=== PATIENT | male | born 1940 | race Caucasian/White ===

== ENCOUNTER 2019-10-06 09:16 | Inpatient (IN) ==
--- NOTE | 2019-10-06 10:34 | Diag Imaging Result Doc PS360 ---
EXAM: CT HEAD W/O CONTRAST INDICATION: R sided weakness TECHNIQUE: This exam was performed using automated exposure control, adjustment of mA or kV according to patient size, and/or use of iterative reconstruction technique. COMPARISON: None. FINDINGS: There is focal encephalomalacia at the anterior tip of the left temporal lobe and a small focus of encephalomalacia at the anterior left frontal lobe. There are a couple of chronic appearing pontine lacunar infarcts. There is low-attenuation in the periventricular and subcortical white matter suggesting at least moderate microangiopathy. There is no definite acute infarct given the limited sensitivity of CT versus MRI. There is no discrete intracranial mass, mass effect, or intracranial hemorrhage. The surrounding soft tissues and bony structures are essentially unremarkable. IMPRESSION: Chronic appearing changes as described. No definite acute intracranial pathology by CT. Electronically signed by Dennys Campbell 10/06/2019 10:32 AM
[2019-10-06 10:50] LABS: BASO# 0.04 X1000 (0.0-0.2); BASO% 0.6 % (0.0-0.8); EOS# 0.25 X1000 (0.0-0.7); EOS% 3.9 % (0.0-10.0); HEMATOCRIT 35.7 % (42.0-52.0); IMM GRAN# 0.01 X1000 (0.0-0.04); IMM GRAN% 0.2 % (0.0-0.5); LYMPH# 1.03 X1000 (1.2-3.4); LYMPH% 16.2 % (20.5-51.1); MCH 26.8 PG (27-31); MCHC 30.8 g/dL (33-37); MCV 86.9 FL (81-99); MONO# 1.04 X1000 (0.11-0.59); MONO% 16.4 % (1.7-9.3); MPV 11.5 FL (7.4-10.4); NEUT# 3.98 X1000 (1.4-6.5); NEUT% 62.7 % (42.2-75.2); PLT 234 X1000 (130-400); RBC 4.11 XMIL (4.7-6.1); RDW 16.5 % (11.5-14.5); WBC 6.35 X1000 (4.8-10.8)
[2019-10-06 11:04] LABS: ALBUMIN 4.3 g/dL (3.5-5.0); CALCIUM 8.7 mg/dL (8.8-10.2); CREATININE 1.5 mg/dL (0.7-1.2); POTASSIUM 5.1 mmol/L (3.5-5.1); TOTAL BILIRUBIN 0.6 mg/dL (0.20-1.00); TOTAL PROTEIN 7.2 g/dL (6.3-8.3)
[2019-10-06 11:08] LABS: PTT 26.3 Seconds (22.3-41.8)
[2019-10-06 11:11] LABS: INR 1.04; PROTIME 14.1 Seconds (11.0-16.0)
--- NOTE | 2019-10-06 12:23 | Diag Imaging Result Doc PS360 ---
EXAM: MRI BRAIN W/O CONTRAST INDICATION: R sided weakness COMPARISON: CT head performed earlier today. No prior MRI is available for comparison. FINDINGS: There is a small round focus of restricted diffusion seen in the hall radiata of the left parietal lobe consistent with an acute lacunar infarct. This is not visible on the previous CT. There is corresponding T2/FLAIR hyperintensity. There is also extensive patchy T2/FLAIR hyperintensity in the periventricular and subcortical white matter indicating advanced microangiopathy. There is focal encephalomalacia at the anterior left temporal lobe and the anterior left frontal lobe. There is a small periventricular chronic lacunar infarct adjacent to the anterior horn of the left lateral ventricle. There are a couple of small chronic pontine lacunar infarcts. There is no discrete intracranial mass, mass effect, or intracranial hemorrhage. There is mild sphenoid sinus mucosal disease. Surrounding soft tissues and bony structures are essentially unremarkable, otherwise. IMPRESSION: 1.Acute lacunar infarct in the hall radiata of the left parietal lobe as described. 2.Advanced white matter microangiopathy, left temporal and left frontal encephalomalacia, and several chronic lacunar infarcts as detailed above. Electronically signed by Dennys Campbell 10/06/2019 12:21 PM
[2019-10-06] MEDS ORDERED: TYLENOL PO PRN ×2 (13:44→16:36)
[2019-10-06] MEDS ORDERED: ZOFRAN IV PRN ×2 (13:44→16:36)
[2019-10-06] MEDS ORDERED: APRESOLINE IV PRN (13:47)
[2019-10-06] MEDS ORDERED: NORVASC PO SCH (14:00)
--- NOTE | 2019-10-06 16:46 | Vascular Study Report ---
EXAM: Carotid Ultrasound INDICATION: acute CVA TECHNIQUE: COMPARISON: None. FINDINGS: Right: There is mild soft and smooth atherosclerotic plaque and intimal thickening at the carotid bulb. The peak systolic velocity measures 68, 77, 46, 43, 43, 52, and 66 cm/s at the right subclavian artery, CCA, bifurcation, proximal ICA, mid ICA, distal ICA, and ECA, respectively. There is antegrade flow in the vertebral artery. The carotid ratio is 0.68. Left: There is no significant atherosclerotic disease involving the left carotid system on grayscale images. The peak systolic velocity measures 57, 71, 47, 29, 53, 57, and 39 cm/s at the left subclavian artery, CCA, bifurcation, proximal ICA, mid ICA, distal ICA, and ECA, respectively. There is antegrade flow in the vertebral artery. The carotid ratio is 0.79. IMPRESSION: Mild atherosclerotic plaque at the right carotid bulb as described. No evidence of hemodynamically significant stenosis. Electronically signed by Dennys Campbell 10/06/2019 4:44 PM
--- NOTE | 2019-10-06 16:57 | EKG Report ---
Test Performed on : 10/06/2019 10:41:00 AM Test Reason : weakness Blood Pressure : / mmHG Vent. Rate : 070 BPM Atrial Rate : 070 BPM P-R Int : 180 ms QRS Dur : 104 ms QT Int : 414 ms P-R-T Axes : 039 005 091 degrees QTc Int : 447 ms Normal sinus rhythm. Abnormal QRS-T angle, consider primary T wave abnormality Abnormal ECG No previous ECGs available Unconfirmed Result
[2019-10-06] MEDS: NS 1,000 ML IV SCH (18:44)
[2019-10-06] MEDS: ASPIRIN PO SCH (18:44)
--- NOTE | 2019-10-06 19:19 | HISTORY AND PHYSICAL ---
CHIEF COMPLAINT: Trouble with right leg. HISTORY OF PRESENT ILLNESS: This is a 78-year-old gentleman who presented to the emergency room complaining of right sided weakness and trouble with ambulation that began Wednesday. The said that initially when this started, he went to check the mail and was dragging his right leg. Later that day, while he was eating, he started leaning to the right. This had since improved somewhat. She denied any difficulty speaking or any facial droop. He had no difficulty chewing and swallowing. Over the last 3 days, the patient has had difficulty walking. He has fallen a few times. Mr Barakat reports he has not seen a doctor in 13 years. PAST MEDICAL HISTORY: Denies. PAST SURGICAL HISTORY: Denies. SOCIAL HISTORY: He is . He lives this . He denies any alcohol, tobacco, or illicit drug use. ALLERGIES: No known drug allergies. HOME MEDICATIONS: None. FAMILY HISTORY: Positive for hypertension. He denies any family history of strokes. REVIEW OF SYSTEMS: Discussed with patient with pertinent positives stated in the HPI. He denied any syncope or dizziness, any chest pain or palpitations, shortness of breath, cough, fever, chills, night sweats, any nausea, vomiting, diarrhea, constipation, black or bloody vomitus or stools, any hematuria, dysuria, frequency, urgency. PHYSICAL EXAMINATION: GENERAL: This is a 78-year-old gentleman who is sitting on the stretcher in the emergency room in no distress. VITAL SIGNS: Blood pressure is 175/100, respirations are 18, temperature is 98.3 degrees, heart rate is 72. O2 saturations are 98% on room air. EYES: Pupils are equal, round, react to light. EOMs are intact. Sclerae are anicteric. HEAD: Normocephalic, atraumatic. ENT: Mucous membranes are moist. NECK: Supple with trachea midline. CARDIOVASCULAR: Regular rate and rhythm. S1 and S2 appreciated. No murmur. He denies any calf tenderness. No lower extremity edema with peripheral pulses palpable x4 extremities. PULMONARY: Breath sounds are clear with no increased work of breathing noted. Chest rises and falls symmetrically with respiration. GASTROINTESTINAL: Abdomen is soft, nontender, and nondistended with bowel sounds in all 4 quadrants. NEUROLOGIC: Pupils are equal, round, react to light. EOMs are intact. Forehead is spared. He has no facial droop. No tongue or uvula deviation. Equal nasal flaring. Equal shoulder shrug. He has no plantar drift. [place] Pusher are equal. [id number] is 3/3. Muscle strength to upper extremities is 5/5. Right lower extremity is 2 to 3/5 with left lower extremity being 5/5. LABS: WBC is 6.3 with hemoglobin 11, hematocrit 35.7, and platelets 234,000. Sodium 138, potassium 5.1, BUN 12, creatinine 1.5 with a glucose of 97. CT of the head revealed chronic appearing changes. No definite acute intracranial pathology. There is focal encephalomalacia at the anterior tip of the left temporal lobe, and a small focus of encephalomalacia at the anterior frontal lobe. There are a couple of chronic appearing pontine lacunar infarcts. No definite acute infarct given the limited sensitivity of CT versus MRI. There is no discrete intracranial mass, mass effect, or intracranial hemorrhage. MRI of the brain without contrast: Acute lacunar infarct in the hall radiata of the left parietal lobe. Advanced white matter microangiopathy, left temporal and left frontal encephalomalacia, several chronic lacunar infarcts. ASSESSMENT: 1. Acute cerebrovascular accident at the hall radiata of the left parietal lobe, lacunar infarct. 2. Left temporal and left frontal encephalomalacia with several chronic lacunar infarcts. 3. Right lower extremity weakness. 4. Acute kidney injury. PLAN: 1. The patient will be admitted to the Medical/Surgical floor and placed on telemetry. 2. Neurological checks every 4 hours. 3. consult Physical Therapy. 4.CBC and CMP, lipid panel in am 5. Gentle intravenous hydration. 6. Will start aspirin 81 mg daily. 7. Start Norvasc 5 mg p.o. daily. 8. Hydralazine 10 mg intravenously q.4 hours p.r.n. systolic pressure greater than 170. 9. Zofran for nausea. 10. Lipitor tomorrow night. 11. bilateral carotid Dopplers as well as an echocardiogram. 12. Further treatments pending hospital course. Dictated by RUDDY Madison for Kelvin Thomas MD cc: RUDDY Madison MD [facility]
[2019-10-06] MEDS: LIPITOR PO SCH (20:33)
[2019-10-06] MEDS ORDERED: LIPITOR PO SCH (21:00)
[2019-10-07] MEDS: LIPITOR PO SCH ×2 (00:48→20:50)
--- NOTE | 2019-10-07 01:19 | HISTORY AND PHYSICAL ---
ADDENDUM: Patient presented to the hospital with right lower extremity weakness that started 3 days ago. At that point, he was having much more severe weakness in his right lower extremity as well as upper extremity. No headaches. No mental status changes. Blood pressures have been elevated. He has not seen a doctor in over 13 years. Currently, blood pressure is 177/101. Due to the face that he had stroke symptoms onset 3 days ago, we are going to start controlling his blood pressure little bit better instead of allowing permissive hypertension. We are going to check cholesterol and we will follow. cc: Kelvin Tohmas MD
[2019-10-07 06:02] LABS: HEMATOCRIT 34.1 % (42.0-52.0); HEMOGLOBIN 10.3 g/dL (14.0-18.0); MCH 26.4 PG (27-31); MCHC 30.2 g/dL (33-37); MCV 87.4 FL (81-99); MPV 11.7 FL (7.4-10.4); RBC 3.9 XMIL (4.7-6.1); RDW 16.7 % (11.5-14.5); WBC 5.85 X1000 (4.8-10.8)
[2019-10-07 06:33] LABS: ALBUMIN 3.8 g/dL (3.5-5.0); CALCIUM 8.4 mg/dL (8.8-10.2); CREATININE 1.3 mg/dL (0.7-1.2); POTASSIUM 4.4 mmol/L (3.5-5.1); TOTAL BILIRUBIN 0.5 mg/dL (0.20-1.00); TOTAL PROTEIN 6.8 g/dL (6.3-8.3)
[2019-10-07 06:34] LABS: CHOLESTEROL 139 mg/dL (0-200); HDL 33 mg/dL (35-55); LDL 81 mg/dL; TRIGLYCERIDES 123 mg/dL (39-160); VLDL 25 mg/dL
[2019-10-07] MEDS: PRILOSEC PO SCH (06:50)
[2019-10-07] MEDS: NS 1,000 ML IV SCH (06:57)
[2019-10-07] MEDS: APRESOLINE IV PRN ×2 (08:18→21:20)
[2019-10-07] MEDS: NORVASC PO SCH (09:10)
--- NOTE | 2019-10-07 12:50 | PROGRESS NOTE ---
DATE: 10/07/2019 SUBJECTIVE: Patient notes that he is feeling better. He is still having some right lower extremity weakness but is able to ambulate with some assistance. PHYSICAL EXAMINATION: Vital signs: Temperature 97 degrees, pulse 74, respiratory rate 18, BP 180/94. General: The patient is awake, pleasant. He is in no current distress. HEENT: Normocephalic. Neck: Supple. Cardiovascular: Regular rate. Chest: Clear, nonlabored. Abdomen: Soft, nondistended. Extremities: Moves all extremities although has weakness of his right lower extremity. ASSESSMENT: 1. Acute cerebrovascular accident in the left parietal region with previous lacunar infarctions. 2. Hypertension. PLAN: We are going to continue patient in the hospital, start his Norvasc this morning, get Physical Therapy involved. The patient desires to go home instead of going to rehab. If he is able to ambulate with assistance, then we can consider discharging home. cc: Kelvin Thomas MD
--- NOTE | 2019-10-07 15:56 | ECHO REPORT ---
ORDER DATE: 10/06/2019 ECHOCARDIOGRAPHIC MEASUREMENTS: 1. Interventricular septum 1.2. 2. Left ventricular posterior wall 1.0. 3. Diastolic diameter 5.5. 4. Left atrium 3.8 cm. 5. Ascending aorta 4.3. 6. Ascending aorta 4.7 cm. 7. Mitral valve was normal. 8. Tricuspid valve was normal. 9. Aortic valve leaflets were trileaflet. 10. Pulmonic valve was normal. Normal left ventricular cavity size. Estimated ejection fraction of 55 to 60 percent. 11. There is mild mitral regurgitation. 12. There is mild tricuspid regurgitation. Peak velocity across the tricuspid valve was less than 2 m/sec. 13. Ascending aorta was dilated with moderate to severe aortic regurgitation. 14. There is grade 1 diastolic dysfunction. CONCLUSIONS: 1. Normal left ventricular cavity size. Estimated ejection fraction of 55 to 60 percent. 2. Ascending aorta is severely dilated associated with moderate to severe aortic regurgitation. 3. There is no pericardial effusion. cc: MD Kelvin Reyes MD
[2019-10-07] MEDS ORDERED: LIPITOR PO SCH (21:00)
[2019-10-08 06:10] VITALS: BP 153/87
[2019-10-08] MEDS: PRILOSEC PO SCH (06:11)
[2019-10-08] MEDS: NORVASC PO SCH (08:19)
[2019-10-08] MEDS: ASPIRIN PO SCH (08:19)
--- NOTE | 2019-10-08 16:10 | DISCHARGE SUMMARY ---
ADMISSION DATE: 10/06/2019 DISCHARGE DATE: 10/08/2019 DIAGNOSES: 1. Acute cerebrovascular accident left parietal region with previous lacunar infarcts. 2. Hypertension. 3. Acute kidney injury, improved. DIAGNOSTICS: 1. CT of the head revealed chronic appearing changes with focal encephalomalacia in the anterior tip of the left temporal lobe and small focus of encephalomalacia at the anterior left frontal lobe. There are a couple of chronic appearing pontine lacunar infarcts. There is low attenuation in the periventricular and subcortical white matter suggesting at least moderate microangiopathy. There is no definite infarct given the limited sensitivity of CT versus MRI. 2. MRI of the brain without contrast. Acute lacunar infarct in the hall radiata of the left parietal lobe. Advanced white matter microangiopathy, left temporal and left frontal encephalomalacia, and several chronic lacunar infarcts. 3. Bilateral carotid Doppler revealed mild atherosclerotic plaque at the right carotid bulb. No evidence of hemodynamically significant stenosis. HOSPITAL COURSE: Mr. Barakat presented to the emergency room 3 days after he developed right- sided weakness with trouble walking. He was found to have an acute CVA in the left parietal region. Studies as stated above. He continues with some right lower extremity weakness. He was evaluated by Physical Therapyand ambulated 150 feet with a front wheeled walker. He was recommended to use a front wheeled walker at home per physical therapy. DISCHARGE VITAL SIGNS: Blood pressure is 153/87, heart rate of 86, respirations 18, temperature 97.7 degrees with room air saturations 97% to 98%. PHYSICAL EXAM: Eyes: Pupils equal, round, react to light. EOMs are intact. Sclerae are anicteric. HEENT: Head is normocephalic, atraumatic. Mucous membranes are moist. Neck: Supple with trachea midline. No DVT. Cardiovascular: Regular rate and rhythm. S1 and S2 are appreciated. No murmur. He has no lower extremity edema with peripheral pulses palpable x4 extremities. Pulmonary: Breath sounds clear no increased work of breathing noted. Chest rise and falls symmetric with respiration. Gastrointestinal: Abdomen is soft, nontender, nondistended with bowel sounds in all 4 quadrants. Neurologic: He is alert and oriented. Forehead is spared. He has no facial droop. Equal nasal flaring. No tongue or uvula deviation. Equal shoulder shrug. No plantar drift. [id number] 3/3. [place] Slasher are equal. Strength is 5/5 to both arms. Lower extremity, he has 5/5 strength on the left and 3/5 to 4/5 on the right. DISCHARGE MEDICATIONS: 1. Lipitor 40 mg p.o. at bedtime. 2. Norvasc 10 p.o. daily. He is being discharged home in stable condition with family members. TIME SPENT: This is a greater than 30-minute discharge. Dictated by RUDDY Madison for Kelvin Thomas MD cc: RUDDY Madison MD Michael Putman, MD [facility]
--- NOTE | 2019-10-08 20:55 | DISCHARGE SUMMARY ---
ADMISSION DATE: 10/06/2019 DISCHARGE DATE: 10/08/2019 ADDENDUM: Patient seen and examined by myself. Full note dictated and discussed with nurse practitioner. On discharge, patient is awake, alert. He is in no distress. He did have a recent left parietal lobe CVA. He is having some weakness, although, improving with therapy. We will discharge him home with outpatient physical therapy. I discussed with him the importance of controlling his blood pressure as well as cholesterol. He is on Norvasc and Lipitor. cc: Kelvin Thomas MD
[2019-10-09] MEDS ORDERED: NORVASC PO SCH (09:00)
== END 2019-10-08 10:40 | disposition home or self-care (01) | DRG 65 ==
LOC: P.ED 09:16 → P.MEDSURG 14:31
PROVIDERS: ATTEND Family Medicine